=== PATIENT | male | born 1940 | race Caucasian/White ===

== ENCOUNTER 2016-05-27 18:11 | Emergency (ER) | payer MEDICARE, BC ==
[2016-05-27 19:04] LABS: CHLORIDE,CL 102 mmol/L (98-107); SODIUM,NA 140 mmol/L (136-145)
[2016-05-27] MEDS ORDERED: HYDROmorphone 1 MG/ML Syringe IVPUSH ONE (19:15)
[2016-05-27] MEDS ORDERED: LORazepam 2 MG/ML MDV IVPUSH ONE (19:17)
[2016-05-27 20:21] VITALS: BP 145/84
--- NOTE | 2016-05-28 01:24 | ER ---
Date of Service: 05/27/2016 SUBJECTIVE: Guerrero presents to the emergency room with complaints of right ankle pain. He states was stepping off a tractor when he misstepped injuring the ankle. EMS was summoned to the scene. The patient was not able to relate to EMS where he was located and subsequently they had a great deal of trouble locating the patient. EMS stated that it took approximately an hour to locate the patient who was in the field. The patient stated to EMS that the ankle was splinted prehospitally and the patient was transported to [facility]. The patient was adamant that he not be transported to [facility] and requested that he be transported to a different facility, but state law required that he be brought to the nearest facility. Initially, the patient would not relate what his past medical history is, but once his arrived, she stated that he does have a history of atrial fibrillation and recently was removed from Eliquis as he converted to a sinus rhythm. He also does have other underlying health history. PAST MEDICAL HISTORY: 1. Atrial fibrillation, resolved. Has been off anticoagulation in the form of Eliquis for approximately 1 month. 2. Hypertension. 3. Hypothyroidism. 4. Dyslipidemia. 5. Vitamin D deficiency. MEDICATIONS: 1. Losartan 100/12.5. 2. Synthroid 50 mcg daily. 3. Simvastatin 40 mg daily. 4. Vitamin D3. 5. Vitamin B12. 6. Metoprolol tartrate 25 mg p.o. b.i.d. ALLERGIES: NKDA. REVIEW OF SYSTEMS: General: Denies any fever, chills or recent illnesses. HEENT: No sore throat, rhinorrhea, or congestion. Respiratory: No shortness of breath. Cardiac: Denies any substernal chest pain. No jaw, arm, neck, or back pain. GI: No nausea, vomiting, or diarrhea. No melena, hematochezia, or hematemesis. : Denies any dysuria. Musculoskeletal: Complains of mild discomfort to his right ankle. He did receive some 4 mg of morphine prehospitally and rated his pain at approximately 3 on arrival to the ER. Neurologic: No fainting, blackouts, or lightheadedness. Neurovascular circulation and sensation are within normal limits in the distal portion of the right lower extremity. He is able to wiggle his toes. PHYSICAL EXAMINATION: General: This is a 76-year-old male patient, who is acutely anxious and resistive to questioning and belligerent with staff. Vital Signs: Blood pressure is 154/98, pulse rate is 102, temperature is 36.4, respiratory rate 18, O2 saturations 94%. Skin: Warm, pink, and dry. Musculoskeletal: The patient does have obvious deformity to the right ankle with crepitus to the lateral aspect along the distal fibula. There is skin tenting of the medial aspect in the area of the medial malleolus and some subluxation of the foot off the tibia and fibula. Appearance most consistent with that of a bimalleolar or trimalleolar closed fracture. Neurovascular circulation, sensation, and motor function all within normal limits in distal portion of the extremity. RADIOGRAPHIC DATA: Radiographs of the patient's right ankle were obtained and there was evidence of a closed bimalleolar fracture. EMERGENCY ROOM COURSE: The patient was given Dilaudid 1 mg IV and Ativan 1 mg IV. Following this, the foot was repositioned to decrease the tenting of the skin on the medial aspect of the ankle and a posterior short leg fiberglass splint was placed on the extremity. No neurovascular compromise was noted following splinting. The patient remained stable in my care in the emergency room. ASSESSMENT: Right bimalleolar fracture. PLAN: I spoke with Dr. Munoz at [facility] in [place] who accepts the patient in transfer. Again, the patient was initially extremely resistive to care in and was going to sign out against medical advice. However, he consented to treatment after he was told of the potential long-term effects of not having the extremity splinted and traveling to [place]. Also[place] her half hour to get here. Again, the patient did subsequently consent to treatment and his was present and was in agreement with this plan of giving him some sedation and placing the splint on the ankle. The patient will be transported by [facility] ground ambulance in the event that he does require further pain medication. All questions were answered. MWK: 05/27/2016 20:04:55 MODL: 05/28/2016 01:17:23 /[id number]
== END 2016-05-27 20:20 | disposition short-term general hospital (02) ==
LOC: VM.ED 18:11
DX: S82.841A Displaced bimalleolar fracture of right lower leg, initial encounter for closed fracture (principal); I48.91 Unspecified atrial fibrillation; I10 Essential (primary) hypertension; E03.9 Hypothyroidism, unspecified; E78.5 Hyperlipidemia, unspecified; W20.8XXA Other cause of strike by thrown, projected or falling object, initial encounter
CPT/HCPCS: 29515; 36415; 73600; 80053; 85025; 85610; 96374; 96375; 99284; 99285; J1170; J2060